=== PATIENT | female | born 1995 | race Caucasian/White ===

== ENCOUNTER 2021-09-04 07:42 | Emergency (ER) | payer OTHER ==
[~2021-09-04] VITALS: Ht 162.6 cm; Wt 138.3 kg
[2021-09-04] MEDS ORDERED: KETOROLAC 30MG VIAL (30MG/ML) IVP ONE (08:30)
[2021-09-04 08:34] LABS: BASOPHILS % (AUTO) 0.6 % (0.0-5.0); HEMATOCRIT 39.7 % (36-48); LYMPHOCYTES % (AUTO) 27.5 % (21.0-51.0); MEAN CORPUSCULAR HEMOGLOBIN 27.9 pg (27.0-33.0); MEAN CORPUSCULAR HGB CONC 33.5 g/dL (32.0-36.0); MEAN CORPUSCULAR VOLUME 83.4 fL (79-99); MONOCYTES % (AUTO) 4.5 % (3.0-13.0); NEUTROPHILS % (AUTO) 64.8 % (40.0-77.0); PLATELET COUNT (AUTO) 275 K/uL (130-400); RED BLOOD CELL COUNT(AUTO) 4.76 MIL/uL (4.00-5.50); RED CELL DISTRIBUTION WIDTH 12.5 % (11.0-15.5); WHITE BLOOD COUNT (AUTO) 11.2 K/uL (4.8-10.8)
[2021-09-04 08:47] LABS: CREATININE 0.6 mg/dL (0.5-1.5); POTASSIUM 4.7 mmol/L (3.5-5.1)
[2021-09-04 08:51] LABS: ALBUMIN 3.5 g/dL (3.5-5.0); BILIRUBIN,TOTAL 0.3 mg/dL (0.2-1.0); TOTAL PROTEIN, SERUM 7.6 g/dL (6.0-8.3)
[2021-09-04 08:58] LABS: APPEARANCE,URINE TURBID (CLEAR); BILIRUBIN,URINE NEGATIVE (NEGATIVE); GLUCOSE, URINE (UA) NEGATIVE (NEGATIVE); KETONES,URINE NEGATIVE (NEGATIVE); LEUKOCYTE ESTERASE ,URINE NEGATIVE (NEGATIVE); NITRATE,URINE POSITIVE (NEGATIVE); OCCULT BLOOD,URINE LARGE (NEGATIVE); PH,URINE 6.5 (5.0-8.0); PROTEIN,URINE TRACE mg/dL (NEGATIVE); UROBILINOGEN,URINE 0.2 mg/dL (0.2-1.0)
[2021-09-04 09:00] LABS: COLOR,URINE RED (YELLOW)
[2021-09-04 09:07] LABS: BACTERIA,URINE Rare /HPF (None Seen); RBC,URINE TNTC /HPF (0-1)
[2021-09-04 09:08] LABS: SQUAMOUS EPITHELIAL CELL,UR Few /HPF (0-2)
[2021-09-04] MEDS ORDERED: MEDROXYPROGESTERONE ACET 5 MG TAB PO SCH (09:30)
[2021-09-04] MEDS ORDERED: CEFTRIAXONE 1G VIAL IVP ONE (09:30)
[2021-09-04] MEDS ORDERED: IBUP-2070 PO (09:37)
[2021-09-04] MEDS ORDERED: MEDR10TA PO (09:37)
[2021-09-04] MEDS ORDERED: CEPH500B PO (09:37)
[2021-09-04] MEDS ORDERED: CEFTRIAXONE 1G VIAL ONE (09:42)
[2021-09-04] MEDS ORDERED: KETOROLAC 30MG VIAL (30MG/ML) ONE (09:43)
[2021-09-04 10:30] VITALS: BP 135/74
== END 2021-09-04 10:43 | disposition home or self-care (01) ==
LOC: EDH 07:42
DX: N39.0 Urinary tract infection, site not specified (principal); N93.9 Abnormal uterine and vaginal bleeding, unspecified; Z79.1 Long term (current) use of non-steroidal anti-inflammatories (NSAID); Z88.0 Allergy status to penicillin; Z88.2 Allergy status to sulfonamides; Z88.1 Allergy status to other antibiotic agents; Z79.3 Long term (current) use of hormonal contraceptives
CPT/HCPCS: 36415; 76857; 80053; 81001; 84703; 85025; 87088; J0696; J1885

== ENCOUNTER 2021-11-21 17:44 | Observation (INO) | payer OTHER ==
[~2021-11-21] VITALS: Ht 180.3 cm; Wt 137.5 kg
[~2021-11-21 17:44] MED LIST: CEPH500B PO; IBUP-2070 PO; MEDR10TA PO
[2021-11-21 18:28] LABS: INFLUENZA TYPE A NEGATIVE FOR TYPE A (NEG); INFLUENZA TYPE B NEGATIVE FOR TYPE B (NEG)
[2021-11-21] MEDS ORDERED: 0.9% NACL 500ML IV.SOLN 500 ML IV ONE (19:30)
[2021-11-21] MEDS ORDERED: LEVOFLOXACIN 500 MG/D5W 100 ML 100 ML IV SCH (19:30)
[2021-11-21] MEDS ORDERED: GUAIFENESIN-DM 200/20 MG 10 ML PO PRN (19:30)
[2021-11-21] MEDS ORDERED: AZITHROMYCIN 500MG+NS 250ML IVPB SCH (19:30)
[2021-11-21 19:52] LABS: BASOPHILS % (AUTO) 0.2 % (0.0-5.0); HEMATOCRIT 41.8 % (36-48); LYMPHOCYTES % (AUTO) 20.2 % (21.0-51.0); MEAN CORPUSCULAR HEMOGLOBIN 26.5 pg (27.0-33.0); MEAN CORPUSCULAR HGB CONC 32.5 g/dL (32.0-36.0); MEAN CORPUSCULAR VOLUME 81.5 fL (79-99); MONOCYTES % (AUTO) 2.2 % (3.0-13.0); NEUTROPHILS % (AUTO) 76.7 % (40.0-77.0); PLATELET COUNT (AUTO) 233 K/uL (130-400); RED BLOOD CELL COUNT(AUTO) 5.13 MIL/uL (4.00-5.50); RED CELL DISTRIBUTION WIDTH 12.5 % (11.0-15.5)
[2021-11-21] MEDS ORDERED: ASPIRIN 325MG TAB PO ONE (20:00)
[2021-11-21 20:16] LABS: BILIRUBIN,TOTAL 0.4 mg/dL (0.2-1.0); CREATININE 0.7 mg/dL (0.5-1.5); POTASSIUM 4.2 mmol/L (3.5-5.1); TOTAL PROTEIN, SERUM 8.1 g/dL (6.0-8.3)
[2021-11-21] MEDS ORDERED: PHARMACY COMMUNICATION MISC SCH (20:30)
[2021-11-21] MEDS ORDERED: [UNRECOGNIZED DRUG - OTHER] MISC SCH (20:30)
[2021-11-21 20:32] LABS: B-TYPE NATRIURETIC PEPTIDE 6 pg/mL (0-100)
[2021-11-21] MEDS ORDERED: ERGOCALCIFEROL (VITAMIN D2) 50,000 UNIT CAPSULE PO ONE (21:00)
[2021-11-21] MEDS ORDERED: IPRATROPIUM/ALBUTEROL SULFATE 3 ML SOLUTION IH SCH (22:00)
[2021-11-21] MEDS ORDERED: ASPIRIN 325MG TAB ONE (22:16)
[2021-11-21] MEDS ORDERED: ERGOCALCIFEROL (VITAMIN D2) 50,000 UNIT CAPSULE ONE (22:16)
[2021-11-21] MEDS: ENOXAPARIN SODIUM 60 MG/0.6 ML SQ SCH (22:30)
[2021-11-21] MEDS: DOXYCYCLINE 100MG+NS 250ML IV SCH (22:30)
[2021-11-21] MEDS ORDERED: ACETAMINOPHEN 500 MG TABLET PO PRN (23:30)
[2021-11-22] MEDS ORDERED: ALBUTEROL INHALER 90MCG/INH IH PRN
[2021-11-22] MEDS ORDERED: MOLN200C PO (03:03)
[2021-11-22] MEDS ORDERED: PRED20TA3 PO (03:03)
[2021-11-22 04:00] VITALS: BP 150/90
[2021-11-22 06:27] LABS: HEMATOCRIT 36.2 % (36-48); MEAN CORPUSCULAR HEMOGLOBIN 26.6 pg (27.0-33.0); MEAN CORPUSCULAR HGB CONC 31.8 g/dL (32.0-36.0); MEAN CORPUSCULAR VOLUME 83.6 fL (79-99); RED BLOOD CELL COUNT(AUTO) 4.33 MIL/uL (4.00-5.50); RED CELL DISTRIBUTION WIDTH 12.6 % (11.0-15.5); WHITE BLOOD COUNT (AUTO) 5.2 K/uL (4.8-10.8)
[2021-11-22 06:43] LABS: ALBUMIN 3.2 g/dL (3.5-5.0); BILIRUBIN,DIRECT 0.1 mg/dL (0.0-0.3); BILIRUBIN,TOTAL 0.3 mg/dL (0.2-1.0); CREATININE 0.6 mg/dL (0.5-1.5); MAGNESIUM 1.8 mg/dL (1.80-2.40); PHOSPHORUS 2.8 mg/dL (2.5-4.9); POTASSIUM 3.8 mmol/L (3.5-5.1); TOTAL PROTEIN, SERUM 6.5 g/dL (6.0-8.3)
[2021-11-22 07:30] VITALS: BP 121/71
[2021-11-22] MEDS ORDERED: ZINC SULFATE 220 CAPSULE PO SCH (09:00)
[2021-11-22] MEDS ORDERED: PANTOPRAZOLE 40 MG TAB DR PO SCH (09:00)
[2021-11-22] MEDS: ENOXAPARIN SODIUM 60 MG/0.6 ML SQ SCH (09:23)
[2021-11-22] MEDS: DOXYCYCLINE 100MG+NS 250ML IV SCH (09:23)
[2021-11-22] MEDS ORDERED: HYDROCHLOROTHIAZIDE 25 MG TABLET PO SCH (10:00)
[2021-11-22] MEDS ORDERED: DEXA6TAB7 PO (10:35)
[2021-11-22] MEDS ORDERED: IBUP-2070 PO (10:35)
[2021-11-22] MEDS ORDERED: METF-444 PO (10:35)
[2021-11-22] MEDS ORDERED: ALBU8.5H8 IH (10:35)
[2021-11-22 11:00] VITALS: BP 124/72
[2021-11-22] MEDS ORDERED: BENZ-39 PO (11:36)
[2021-11-22] MEDS ORDERED: METFORMIN HCL 500 MG TABLET PO SCH (17:00)
[2021-11-23] MEDS ORDERED: HYDROCHLOROTHIAZIDE 25 MG TABLET PO SCH (09:00)
== END 2021-11-22 15:00 | disposition home or self-care (01) ==
LOC: EDH 17:44 → EDHIP 19:50 → 4BH 11-22 02:17
PROVIDERS: ADMIT Internal Medicine; ATTEND Internal Medicine
DX: U07.1 COVID-19 (principal); R09.02 Hypoxemia; G47.33 Obstructive sleep apnea (adult) (pediatric); E66.01 Morbid (severe) obesity due to excess calories; N92.6 Irregular menstruation, unspecified; R06.02 Shortness of breath; E88.81 Metabolic syndrome and other insulin resistance; G43.909 Migraine, unspecified, not intractable, without status migrainosus; Z79.84 Long term (current) use of oral hypoglycemic drugs; Z88.0 Allergy status to penicillin; Z68.41 Body mass index [BMI] 40.0-44.9, adult
CPT/HCPCS: 36415 ×2; 71045; 76705; 80048; 80053; 80076; 81025; 82550; 83036; 83690; 83735; 83880; 84100; 84145; 84443; 84484; 85025; 85027; 85378; 87635; 87804 ×2; 87880; 93005; 94760 ×2; 96365; 96366 ×2; 96368; 96372 ×2; 99285; C9803; G0378 ×19; J0456; J1650 ×2; J3490 ×2; J7040